=== PATIENT | male | born 2000 | race Two or more races ===

== ENCOUNTER 2024-09-18 18:29 | Emergency (ER) | payer OTHER ==
[~2024-09-18] VITALS: Ht 177.8 cm; Wt 72.6 kg
[2024-09-18 18:54] VITALS: BP 110/59; O2SAT 96
[2024-09-18] MEDS ORDERED: DIPHENHYDRAMINE HCL 50 MG/ML VIAL 1ML ONE (19:28)
[2024-09-18] MEDS ORDERED: ONDANSETRON HCL 2 MG/ML VIAL ONE (19:28)
[2024-09-18] MEDS ORDERED: DIPHENHYDRAMINE HCL 50 MG/ML VIAL 1ML IV ONE (19:30)
[2024-09-18] MEDS ORDERED: ONDANSETRON HCL 2 MG/ML VIAL IV ONE (19:30)
[2024-09-18] MEDS ORDERED: 0.9 % SODIUM CHLORIDE 1,000 ML IV SCH (19:30)
[2024-09-18 19:52] LABS: BASO % 0.4 % (0.1-1.2); EOS # 0.01 (0.04-0.54); EOS % 0.1 % (0.7-7.0); HEMATOCRIT 41.1 % (40.1-51.0); HEMOGLOBIN 14.5 g/dL (13.7-17.5); LYMPH # 1.04 (1.18-3.74); LYMPH % 8.3 % (19.3-53.1); MEAN CORPUSCULAR HEMOGLOBIN 30.5 pg (25.6-32.2); MONO # 0.73 (0.24-0.82); MONO % 5.8 % (4.7-12.5); NEUT # 10.74 (1.56-6.13); NEUT % 85.2 % (34.0-71.1); PLATELET COUNT 280 K/uL (163-369); RED BLOOD COUNT 4.75 M/uL (4.63-6.08); RED CELL DISTRIBUTION WIDTH 11.9 % (11.6-14.4)
[2024-09-18 20:20] LABS: ALBUMIN 4.1 gm/dL (3.4-5.0); BILIRUBIN TOTAL 1.28 mg/dL (0.3-1.2); CALCIUM 9.2 mg/dL (8.5-10.1); GFR 93.44; GLOBULINA 3.6 G/DL (2.4-3.5); POTASSIUM 4.02 mEq/L (3.5-5.1); TOTAL PROTEIN 7.7 gm/dL (6.4-8.2)
== END 2024-09-18 20:51 | disposition home or self-care (01) ==
LOC: ER 18:29
PROVIDERS: General Practice
DX: F12.929 Cannabis use, unspecified with intoxication, unspecified (principal)